=== PATIENT | female | born 1935 | race Caucasian/White ===

== ENCOUNTER 2021-04-14 12:20 | Emergency (ER) | payer MEDICARE, OTHER ==
[~2021-04-14 12:20] MED LIST: ASPIRIN EC81 MG PO; BIOFREEZE89 ML TOP; CENTRUM ADULTS1 EACH PO; LIPITOR20 MG PO; LORATADINE PO; METOPROLOL SUCC50 MG PO; NITROSTAT0.4 MG SL; NORCO 5-325 TA1 EACH PO; PANTOPRAZOLE SO40 MG PO; PLAVIX75 MG PO; XARELTO10 MG PO; ZESTRIL2.5 MG PO
[2021-04-14 13:55] LABS: BASOPHIL 0.5 % (0-2); EOSINOPHIL 1.8 % (0-7); HCT 35.5 % (37.0-47.0); HGB 11.8 g/dl (12.5-16.0); LYMPHOCYTE 25.7 % (15-48); MCH 30.2 pg (25.0-31.0); MCHC 33.2 g/dL (32.0-36.0); MCV 90.8 fL (78.0-100.0); MPV 10.3 fL (6.0-9.5); NEUTROPHIL 63.8 % (41-80); NRBC 0; PLT 387 K/uL (150-400); RBC 3.91 M/uL (4.20-5.40); RDW 14.1 % (11.5-14.0); WBC 8.1 K/uL (4.0-10.5)
[2021-04-14 14:12] LABS: BUN/CREAT RATIO (CALC) 17.9 RATIO; CREATININE 0.84 mg/dL (0.51-0.95); POTASSIUM 4.2 mmol/L (3.5-5.1)
[2021-04-14 14:17] LABS: LACTIC ACID 1.3 mmol/L (0.4-1.9)
[2021-04-14 14:23] LABS: CKMB 0.7 ng/mL (0.0-3.6); PRO-BNP 569 pg/mL (<450)
== END 2021-04-14 14:50 | disposition home or self-care (01) ==
LOC: FER 12:20
PROVIDERS: Emergency Medicine
DX: M54.12 Radiculopathy, cervical region (principal); I25.2 Old myocardial infarction; I10 Essential (primary) hypertension; Z95.5 Presence of coronary angioplasty implant and graft; Z88.0 Allergy status to penicillin; Z91.041 Radiographic dye allergy status
CPT/HCPCS: 36415; 71046; 72040; 80048; 82553; 83605; 83880; 84484; 85025; 93005

== ENCOUNTER 2021-08-16 16:34 | Emergency (ER) | payer MEDICARE, OTHER ==
[~2021-08-16] VITALS: Ht 162.6 cm; Wt 54.9 kg
[2021-08-16 17:46] LABS: BASOPHIL 0.9 % (0-2); EOSINOPHIL 4.3 % (0-7); HCT 45.8 % (37.0-47.0); HGB 14.6 g/dl (12.5-16.0); LYMPHOCYTE 31.9 % (15-48); MCHC 31.9 g/dL (32.0-36.0); MCV 90.9 fL (78.0-100.0); MONOCYTE 10.5 % (0-12); MPV 10.1 fL (6.0-9.5); NEUTROPHIL 52.3 % (41-80); NRBC 0; PLT 427 K/uL (150-400); RBC 5.04 M/uL (4.20-5.40); RDW 14.3 % (11.5-14.0); WBC 7.9 K/uL (4.0-10.5)
[2021-08-16 17:48] LABS: BILIRUBIN NEGATIVE (NEGATIVE); BLOOD TRACE-INTACT Ery/uL (NEGATIVE); CLARITY CLEAR (CLEAR); GLUCOSE (U) NORMAL (NORMAL); LEUKOCYTES NEGATIVE Leu/uL (NEGATIVE); NITRITE NEGATIVE (NEGATIVE); PROTEIN NEGATIVE (NEGATIVE); UROBILINOGEN 0.2 mg/dL (0.2-1.0)
[2021-08-16 17:49] LABS: COLOR STRAW (YELLOW)
[2021-08-16 17:54] LABS: SQUAMOUS EPITHELIAL CELLS RARE; URINARY WBC RARE
[2021-08-16 18:06] LABS: ALBUMIN 4.2 g/dL (3.4-5.0); BILIRUBIN - TOTAL 0.3 mg/dL (0.2-1.0); BUN/CREAT RATIO (CALC) 24.7 RATIO; CREATININE 0.77 mg/dL (0.51-0.95); GLOBULIN (CALCULATION) 4.4 g/dL; POTASSIUM 3.7 mmol/L (3.5-5.1); TOTAL PROTEIN 8.6 g/dL (6.4-8.2)
== END 2021-08-16 19:24 | disposition home or self-care (01) ==
LOC: FER 16:34
PROVIDERS: Emergency Medicine
DX: I48.91 Unspecified atrial fibrillation (principal); I10 Essential (primary) hypertension; Z88.0 Allergy status to penicillin; Z88.1 Allergy status to other antibiotic agents; Z88.8 Allergy status to other drugs, medicaments and biological substances; Z91.041 Radiographic dye allergy status
CPT/HCPCS: 36415; 71045; 80053; 81001; 84484; 85025; 93005

== ENCOUNTER 2021-09-25 13:47 | Emergency (ER) | payer MEDICARE, OTHER ==
[2021-09-25 14:34] LABS: BASOPHIL 0.6 % (0-2); EOSINOPHIL 1.8 % (0-7); HCT 39.8 % (37.0-47.0); HGB 12.7 g/dl (12.5-16.0); LYMPHOCYTE 30.1 % (15-48); MCH 29.3 pg (25.0-31.0); MCHC 31.9 g/dL (32.0-36.0); MCV 91.7 fL (78.0-100.0); MONOCYTE 10.2 % (0-12); MPV 10.4 fL (6.0-9.5); NRBC 0; PLT 398 K/uL (150-400); RBC 4.34 M/uL (4.20-5.40); RDW 14.2 % (11.5-14.0); WBC 7.9 K/uL (4.0-10.5)
[2021-09-25 14:48] LABS: INR 0.98 (0.9-1.2); PROTHROMBIN TIME 12.4 SECONDS (11.8-13.4); PTT 31.8 SECONDS (24.4-34.7)
[2021-09-25 15:29] LABS: CORONAVIRUS 2019 SARS-COV-2 NEGATIVE (NEGATIVE); INFLUENZA A NAA NEGATIVE (NEGATIVE)
[2021-09-25 15:32] LABS: ALBUMIN 3.8 g/dL (3.4-5.0); BILIRUBIN - TOTAL 0.3 mg/dL (0.2-1.0); BUN/CREAT RATIO (CALC) 18.9 RATIO; CREATININE 0.74 mg/dL (0.51-0.95); GLOBULIN (CALCULATION) 3.5 g/dL; POTASSIUM 4.1 mmol/L (3.5-5.1); TOTAL PROTEIN 7.3 g/dL (6.4-8.2)
== END 2021-09-25 16:53 | disposition home or self-care (01) ==
LOC: FER 13:47
PROVIDERS: Internal Medicine
DX: R07.89 Other chest pain (principal); I25.10 Atherosclerotic heart disease of native coronary artery without angina pectoris; I48.91 Unspecified atrial fibrillation; Z88.0 Allergy status to penicillin; Z91.041 Radiographic dye allergy status; Z20.822 Contact with and (suspected) exposure to COVID-19
CPT/HCPCS: 36415; 71045; 80053; 83690; 84145; 84484; 85025; 85610; 85730; 93005; U0002

== ENCOUNTER 2022-03-08 18:05 | Emergency (ER) | payer MEDICARE, OTHER ==
[2022-03-08 18:47] LABS: BASOPHIL 0.9 % (0-2); EOSINOPHIL 3.4 % (0-7); HCT 39.6 % (37.0-47.0); HGB 12.8 g/dl (12.5-16.0); LYMPHOCYTE 35.9 % (15-48); MCH 29.2 pg (25.0-31.0); MCHC 32.3 g/dL (32.0-36.0); MCV 90.4 fL (78.0-100.0); MONOCYTE 11.7 % (0-12); MPV 10.2 fL (6.0-9.5); NEUTROPHIL 47.8 % (41-80); NRBC 0; PLT 383 K/uL (150-400); RBC 4.38 M/uL (4.20-5.40)
[2022-03-08 19:09] LABS: ALBUMIN 3.9 g/dL (3.4-5.0); BILIRUBIN - TOTAL 0.4 mg/dL (0.2-1.0); BUN/CREAT RATIO (CALC) 21.3 RATIO; CREATININE 0.75 mg/dL (0.51-0.95); GLOBULIN (CALCULATION) 3.9 g/dL; POTASSIUM 3.9 mmol/L (3.5-5.1); TOTAL PROTEIN 7.8 g/dL (6.4-8.2)
[2022-03-08 19:10] LABS: LACTIC ACID 0.7 mmol/L (0.4-1.9)
[2022-03-08] MEDS ORDERED: NORCO 5-325 TA1 EACH PO (22:00)
[2022-03-08] MEDS ORDERED: ONDANSETRON ODT4 MG PO (22:02)
== END 2022-03-08 22:21 | disposition home or self-care (01) ==
LOC: FER 18:05
PROVIDERS: Emergency Medicine
DX: K52.9 Noninfective gastroenteritis and colitis, unspecified (principal); I25.2 Old myocardial infarction; Z20.822 Contact with and (suspected) exposure to COVID-19; Z79.02 Long term (current) use of antithrombotics/antiplatelets; Z88.0 Allergy status to penicillin; Z91.041 Radiographic dye allergy status; Z95.5 Presence of coronary angioplasty implant and graft
CPT/HCPCS: 36415; 71045; 80053; 83605; 83690; 84484; 85025; 93005; J1170; J2270; J2405; U0002

== ENCOUNTER → 2022-05-29 | Day surgery (SDC) | payer MEDICARE, OTHER ==
[~2022-05-29] VITALS: Ht 162.6 cm; Wt 55.3 kg
[~2022-05-29] MED LIST changes: +CENTRUM SILVER1 EAC4 PO; +GAS RELIEF125 M1 PO; +MIRALAX17 GM PO; +ONDANSETRON ODT4 MG PO; +TOPROL XL 50 MG50 MG PO; +VITAMIN D350 MC3 PO
== END | disposition home or self-care (01) ==
LOC: FAS 09:47
DX: K57.10 Diverticulosis of small intestine without perforation or abscess without bleeding (principal); K44.9 Diaphragmatic hernia without obstruction or gangrene; K52.9 Noninfective gastroenteritis and colitis, unspecified; I25.10 Atherosclerotic heart disease of native coronary artery without angina pectoris; I10 Essential (primary) hypertension; M19.90 Unspecified osteoarthritis, unspecified site; K21.9 Gastro-esophageal reflux disease without esophagitis; Z88.0 Allergy status to penicillin; Z88.8 Allergy status to other drugs, medicaments and biological substances; Z88.1 Allergy status to other antibiotic agents; Z91.041 Radiographic dye allergy status; Z79.02 Long term (current) use of antithrombotics/antiplatelets; Z79.82 Long term (current) use of aspirin
CPT/HCPCS: J2704; J7120

== ENCOUNTER 2022-07-08 14:11 | Emergency (ER) | payer MEDICARE, OTHER ==
[2022-07-08 14:51] LABS: BASOPHIL 0.8 % (0-2); EOSINOPHIL 3.2 % (0-7); HCT 38.4 % (37.0-47.0); HGB 12.7 g/dl (12.5-16.0); LYMPHOCYTE 31.5 % (15-48); MCH 29.9 pg (25.0-31.0); MCHC 33.1 g/dL (32.0-36.0); MCV 90.4 fL (78.0-100.0); MPV 10.4 fL (6.0-9.5); NEUTROPHIL 54.2 % (41-80); NRBC 0; PLT 394 K/uL (150-400); RBC 4.25 M/uL (4.20-5.40); RDW 14.4 % (11.5-14.0); WBC 7.2 K/uL (4.0-10.5)
[2022-07-08 14:58] LABS: INR 0.98 (0.9-1.2); PROTHROMBIN TIME 12.7 SECONDS (11.9-13.9)
[2022-07-08 15:07] LABS: ALBUMIN 3.7 g/dL (3.4-5.0); BILIRUBIN - TOTAL 0.4 mg/dL (0.2-1.0); BUN/CREAT RATIO (CALC) 22.9 RATIO; CREATININE 0.7 mg/dL (0.51-0.95); POTASSIUM 3.9 mmol/L (3.5-5.1); TOTAL PROTEIN 7.7 g/dL (6.4-8.2)
== END 2022-07-08 18:06 | disposition home or self-care (01) ==
LOC: FER 14:11
PROVIDERS: Physician Assistant
DX: I48.91 Unspecified atrial fibrillation (principal); I25.10 Atherosclerotic heart disease of native coronary artery without angina pectoris; I25.2 Old myocardial infarction; I10 Essential (primary) hypertension; Z95.5 Presence of coronary angioplasty implant and graft; Z88.0 Allergy status to penicillin; Z88.1 Allergy status to other antibiotic agents; Z91.041 Radiographic dye allergy status; Z79.82 Long term (current) use of aspirin; Z79.02 Long term (current) use of antithrombotics/antiplatelets; Z79.899 Other long term (current) drug therapy
CPT/HCPCS: 36415; 71045; 80053; 84484; 85025; 85610; 93005; J7040